=== PATIENT | female | born 1945 | race African-American/Black ===

== ENCOUNTER 2017-07-21 11:36 | Emergency (ER) | payer MEDICARE, MEDICAID ==
[~2017-07-21] VITALS: Ht 167.6 cm; Wt 78.0 kg
[~2017-07-21 11:36] MED LIST: ASPI-1159 PO; CYCL5TAB PO; DULO60CA63 PO; GLIM4TAB2 PO; HYDR-523 PO; LOSA1TAB34 PO; METF10004 PO; METO-396 PO; SERT25TA74 PO; SIMV40TA5 PO; SITA100T11 PO; TAPE50TA9 PO; TRAM50TA3 PO
[2017-07-21] MEDS ORDERED: NITROGLYCERIN OINT 1GM/INCH UDPKT TD STA (12:53)
[2017-07-21] MEDS ORDERED: MORPHINE SULFATE 4 MG/ML CPJ (NOT FOR IM USE) IV STA (12:53)
[2017-07-21] MEDS ORDERED: ASPIRIN 325MG EC TABLET PO ONE (13:00)
[2017-07-21 13:19] LABS: BASOPHILS % 0.3 % (0.0-2.0); EOSINOPHILS % 0.5 % (0.0-5.0); HEMATOCRIT. 32.6 % (36.0-48.0); HEMOGLOBIN. 10.9 g/dL (12.0-16.0); LYMPHOCYTES % 28.8 % (20.0-50.0); MEAN CORPUSCULAR HEMOGLOBIN 30.6 pg (28.0-32.0); MEAN CORPUSCULAR VOLUME 91.1 fL (81.0-99.0); MEAN PLATELET VOLUME 8.6 fl (7.4-10.4); MONOCYTES % 8.3 % (2.0-8.0); NEUTROPHILS % 62.1 % (40.0-76.0); PLATELET 284 x1000/uL (130-400); RED BLOOD CELL COUNT 3.58 mill/uL (4.2-5.4); RED CELL DISTRIBUTION WIDTH 15.1 % (11.6-14.6)
[2017-07-21 13:22] LABS: CHLORIDE 107 mEq/L (98-107)
[2017-07-21] MEDS ORDERED: LOSA50TA20 PO (13:26)
[2017-07-21] MEDS ORDERED: ATOR-2 PO (13:26)
[2017-07-21] MEDS ORDERED: SITA100T11 PO (13:26)
[2017-07-21] MEDS ORDERED: FLUT15.88 BOTHNSTRLS (13:26)
[2017-07-21] MEDS ORDERED: MAGN400T26 PO (13:26)
[2017-07-21] MEDS ORDERED: METOPROLOL TARTRATE 50MG TABLET PO ONE (14:15)
[2017-07-21] MEDS ORDERED: ONDANSETRON HCL 4MG/2ML VIAL IV ONE (14:15)
[2017-07-21] MEDS ORDERED: LEVOFLOXACIN 750MG PREMIX 150 ML IV ONE (17:00)
[2017-07-21 18:04] VITALS: BP 124/79
== END 2017-07-21 18:33 | disposition left against medical advice (07) ==
LOC: ER 11:47 → CANBEDREQ 18:57
DX: R07.89 Other chest pain (principal); I24.9 Acute ischemic heart disease, unspecified; J18.9 Pneumonia, unspecified organism; J98.11 Atelectasis; E11.9 Type 2 diabetes mellitus without complications; I10 Essential (primary) hypertension; F32.9 Major depressive disorder, single episode, unspecified; I48.91 Unspecified atrial fibrillation; R00.0 Tachycardia, unspecified; E78.00 Pure hypercholesterolemia, unspecified; Z90.49 Acquired absence of other specified parts of digestive tract; Z90.710 Acquired absence of both cervix and uterus; Z88.5 Allergy status to narcotic agent; Z79.01 Long term (current) use of anticoagulants
CPT/HCPCS: 36415; 71045; 80053; 83690; 84484; 85025; 87040; 93005; 96365; 96375; 99285; J1956; J2270; J2405

== ENCOUNTER 2024-05-24 20:16 | Emergency (ER) | payer MEDICARE, MEDICAID ==
[~2024-05-24] VITALS: Ht 170.2 cm; Wt 82.0 kg
[~2024-05-24 20:16] MED LIST changes: -ASPI-1159 PO; +ASPI-1497 PO; +ATOR-2 PO; -CYCL5TAB PO; +CYCL5TAB3 PO; -DULO60CA63 PO; +DULO60CA64 PO; +FLUT15.844 BOTHNSTRLS; -GLIM4TAB2 PO; +GLIM4TAB36 PO; -LOSA1TAB34 PO; +LOSA50TA41 PO; +MAGN400T26 PO; +METF-416 PO; -METF10004 PO; +SIMV-46 PO; -SIMV40TA5 PO
[2024-05-24 20:21] VITALS: O2SAT 100
[2024-05-24] MEDS: ACETAMINOPHEN 500MG TABLET PO ONE (20:54)
[2024-05-24 23:30] VITALS: BP 150/73; PULSE 71; RESP 20; TEMP 36.7; O2SAT 100
== END 2024-05-24 23:32 | disposition home or self-care (01) ==
LOC: ER 20:16
DX: S00.81XA Abrasion of other part of head, initial encounter (principal); E11.9 Type 2 diabetes mellitus without complications; E78.00 Pure hypercholesterolemia, unspecified; F32.A Depression, unspecified; I10 Essential (primary) hypertension; Z90.49 Acquired absence of other specified parts of digestive tract; Z88.5 Allergy status to narcotic agent; Z79.899 Other long term (current) drug therapy; Z79.82 Long term (current) use of aspirin; Z79.84 Long term (current) use of oral hypoglycemic drugs; Z90.710 Acquired absence of both cervix and uterus; W01.0XXA Fall on same level from slipping, tripping and stumbling without subsequent striking against object, initial encounter; Y93.89 Activity, other specified; Y92.89 Other specified places as the place of occurrence of the external cause; Y99.8 Other external cause status
CPT/HCPCS: 99284